=== PATIENT | female | born 1970 | race Caucasian/White ===

== ENCOUNTER 2025-03-21 16:28 | Emergency (ER) | payer OTHER ==
[2025-03-21 17:09] VITALS: BP 134/96; PULSE 96; RESP 18; TEMP 98.2; BMI 33.4
== END 2025-03-21 17:30 | disposition home or self-care (01) ==
LOC: FER 16:28
DX: S62.661A Nondisplaced fracture of distal phalanx of left index finger, initial encounter for closed fracture (principal); W23.2XXA Caught, crushed, jammed or pinched between a moving and stationary object, initial encounter
CPT/HCPCS: 73130-TC-LT-FY; 99283-25